=== PATIENT | female | born 1985 | race Hispanic/Latino ===

== ENCOUNTER 2018-07-20 13:32 | Emergency (ER) | payer SELFPAY ==
[2018-07-20 15:06] LABS: BASOPHILS % (AUTO) 0.4 % (0.0-5.0); EOSINOPHILS % (AUTO) 1.2 % (0.0-8.0); HEMATOCRIT 38.4 % (36-48); LYMPHOCYTES % (AUTO) 19.2 % (21.0-51.0); MEAN CORPUSCULAR HEMOGLOBIN 25.6 pg (27.0-33.0); MEAN CORPUSCULAR HGB CONC 32.9 g/dL (32.0-36.0); MEAN CORPUSCULAR VOLUME 77.8 fL (79-99); MONOCYTES % (AUTO) 6.4 % (3.0-13.0); NEUTROPHILS % (AUTO) 72.8 % (40.0-77.0); NUCLEATED RED BLOOD CELLS 0.1 % (0.0-0.19); PLATELET COUNT (AUTO) 313 K/uL (130-400); RED BLOOD CELL COUNT(AUTO) 4.94 MIL/uL (4.00-5.50); RED CELL DISTRIBUTION WIDTH 16.1 % (11.0-15.5); WHITE BLOOD COUNT (AUTO) 10.5 K/uL (4.8-10.8)
[2018-07-20] MEDS ORDERED: KETOROLAC TROMETHAMINE 30MG/ML ONE (15:16)
== END 2018-07-20 15:30 | disposition home or self-care (01) ==
LOC: EDH 13:32
DX: E28.2 Polycystic ovarian syndrome (principal); N93.9 Abnormal uterine and vaginal bleeding, unspecified; Z88.6 Allergy status to analgesic agent
CPT/HCPCS: 36415; 81025; 85025; 96372; 99284; J1885

== ENCOUNTER 2019-02-18 14:24 | Emergency (ER) | payer SELFPAY ==
[2019-02-18] MEDS ORDERED: KETOROLAC TROMETHAMINE 15MG/ML ONE (15:13)
[2019-02-18] MEDS ORDERED: ORPHENADRINE CITRATE 30 MG/ML ML ONE (15:13)
[2019-02-18 15:23] LABS: BASOPHILS % (AUTO) 0.3 % (0.0-5.0); HEMATOCRIT 39.3 % (36-48); LYMPHOCYTES % (AUTO) 21.7 % (21.0-51.0); MEAN CORPUSCULAR HEMOGLOBIN 24.4 pg (27.0-33.0); MEAN CORPUSCULAR HGB CONC 32.1 g/dL (32.0-36.0); MEAN CORPUSCULAR VOLUME 76.1 fL (79-99); MONOCYTES % (AUTO) 3.9 % (3.0-13.0); NEUTROPHILS % (AUTO) 73.1 % (40.0-77.0); PLATELET COUNT (AUTO) 329 K/uL (130-400); RED BLOOD CELL COUNT(AUTO) 5.17 MIL/uL (4.00-5.50); RED CELL DISTRIBUTION WIDTH 17.3 % (11.0-15.5); WHITE BLOOD COUNT (AUTO) 10.6 K/uL (4.8-10.8)
[2019-02-18 15:24] LABS: APPEARANCE,URINE Clear (CLEAR); BILIRUBIN,URINE Negative (NEGATIVE); COLOR,URINE Yellow (YELLOW); GLUCOSE, URINE (UA) Negative (NEGATIVE); KETONES,URINE Negative (NEGATIVE); LEUKOCYTE ESTERASE ,URINE Negative (NEGATIVE); NITRATE,URINE Negative (NEGATIVE); OCCULT BLOOD,URINE Negative (NEGATIVE); PROTEIN,URINE POS 1+ mg/dL (NEGATIVE); UROBILINOGEN,URINE 0.2 mg/dL (0.2-1.0)
[2019-02-18 15:32] LABS: CREATININE 0.7 mg/dL (0.5-1.5); POTASSIUM 3.8 mmol/L (3.5-5.1)
[2019-02-18 15:35] LABS: AMORPHOUS SEDIMENT,UR Few /LPF (None Seen); MUCUS,URINE Many LPF (None Seen); RBC,URINE None Seen /HPF (0-1)
[2019-02-18 15:36] LABS: ALBUMIN 3.3 g/dL (3.5-5.0); BILIRUBIN,TOTAL 0.3 mg/dL (0.2-1.0); TOTAL PROTEIN, SERUM 7.9 g/dL (6.0-8.3)
[2019-02-18 15:36] LABS: BACTERIA,URINE Few /HPF (None Seen); SQUAMOUS EPITHELIAL CELL,UR 0-2 /HPF (0-2)
== END 2019-02-18 16:25 | disposition home or self-care (01) ==
LOC: EDH 14:24
DX: M62.830 Muscle spasm of back (principal); I10 Essential (primary) hypertension; Z87.891 Personal history of nicotine dependence; Z88.5 Allergy status to narcotic agent
CPT/HCPCS: 36415; 80053; 81001; 83690; 85025; 96374; 96375; 99284; J1885; J2360

== ENCOUNTER 2019-04-27 23:57 | Emergency (ER) | payer OTHER ==
[2019-04-28] MEDS ORDERED: ACETAMINOPHEN EXTRA STRENGTH 500 MG TABLET ONE (00:25)
[2019-04-28] MEDS ORDERED: CYCLOBENZAPRINE HCL 10 MG TABLET ONE (00:26)
== END 2019-04-28 02:05 | disposition home or self-care (01) ==
LOC: EDH 23:57
DX: S16.1XXA Strain of muscle, fascia and tendon at neck level, initial encounter (principal); R20.2 Paresthesia of skin; I10 Essential (primary) hypertension; Z88.6 Allergy status to analgesic agent; Z79.899 Other long term (current) drug therapy; V59.19XA Passenger in pick-up truck or van injured in collision with other motor vehicles in nontraffic accident, initial encounter; Y93.89 Activity, other specified; Y92.89 Other specified places as the place of occurrence of the external cause; Y99.8 Other external cause status
CPT/HCPCS: 72040

== ENCOUNTER 2020-07-22 12:56 | Inpatient (IN) | payer BC, OTHER ==
[~2020-07-22] VITALS: Ht 157.5 cm; Wt 158.8 kg
[2020-07-22] MEDS ORDERED: DEXAMETHASONE SOD PHOSPHATE 10MG/ML 1ML VIAL ONE (13:26)
[2020-07-22] MEDS ORDERED: LEVOFLOXACIN 500 MG/D5W 100 ML 100 ML ONE (13:26)
[2020-07-22] MEDS ORDERED: SODIUM CHLORIDE 0.9% 1000ML 1,000 ML IV ONE (13:26)
[2020-07-22] MEDS ORDERED: ACETAMINOPHEN EXTRA STRENGTH 500 MG TABLET ONE (13:27)
[2020-07-22 13:46] LABS: BASOPHILS % (AUTO) 0.3 % (0.0-5.0); HEMATOCRIT 40.4 % (36-48); LYMPHOCYTES % (AUTO) 18.8 % (21.0-51.0); MEAN CORPUSCULAR HEMOGLOBIN 24.5 pg (27.0-33.0); MEAN CORPUSCULAR HGB CONC 31.4 g/dL (32.0-36.0); MONOCYTES % (AUTO) 4.8 % (3.0-13.0); NEUTROPHILS % (AUTO) 75.6 % (40.0-77.0); PLATELET COUNT (AUTO) 307 K/uL (130-400); RED BLOOD CELL COUNT(AUTO) 5.18 MIL/uL (4.00-5.50); RED CELL DISTRIBUTION WIDTH 15.9 % (11.0-15.5); WHITE BLOOD COUNT (AUTO) 7.3 K/uL (4.8-10.8)
[2020-07-22 13:58] LABS: INR 0.95 (0.85-1.15); PARTIAL THROMBOPLASTIN TIME 35.2 SEC (26.3-35.5); PROTHROMBIN TIME 10.3 SEC (9.6-11.6)
[2020-07-22 14:15] LABS: POTASSIUM 3.7 mmol/L (3.5-5.1)
[2020-07-22 14:19] LABS: ALBUMIN 3.5 g/dL (3.5-5.0); BILIRUBIN,TOTAL 0.3 mg/dL (0.2-1.0); TOTAL PROTEIN, SERUM 8.3 g/dL (6.0-8.3)
[2020-07-22] MEDS ORDERED: CEFTRIAXONE SODIUM 1 GM IVP SCH (15:15)
[2020-07-22] MEDS ORDERED: ERGOCALCIFEROL (VITAMIN D2) 50,000 UNIT CAPSULE PO ONE (15:15)
[2020-07-22] MEDS ORDERED: CEFTRIAXONE SODIUM 1 GM ONE (15:17)
[2020-07-22] MEDS ORDERED: ERGOCALCIFEROL (VITAMIN D2) 50,000 UNIT CAPSULE ONE (15:17)
[2020-07-22] MEDS ORDERED: ENOXAPARIN SODIUM 40 MG/0.4 ML SYRINGE SQ ONE (15:17)
[2020-07-22] MEDS ORDERED: DEXTROSE 50%-WATER 50 ML DISP.SYRIN IV PRN (16:00)
[2020-07-22] MEDS ORDERED: GLUCAGON 1MG KIT 1 MG ML IM PRN (16:00)
[2020-07-22] MEDS ORDERED: PHARMACY COMMUNICATION MISC SCH (16:15)
[2020-07-22 16:18] LABS: CRP QUANTITATIVE 36.5 mg/L (0.00-9.0)
[2020-07-22] MEDS: INSULIN HUMULIN R 100 UNIT/ML 3ML SQ SCH ×2 (16:30→21:00)
[2020-07-22 17:08] VITALS: BP 106/63
[2020-07-22] MEDS ORDERED: DEXAMETHASONE SOD PHOSPHATE 4 MG/ML 1ML VIAL IVP SCH (17:30)
[2020-07-22] MEDS: AZITHROMYCIN 500MG+NS 250ML 250 ML IV SCH (17:38)
[2020-07-22 18:02] LABS: HEMOGLOBIN A1C 6.4 % (4.0-6.0)
[2020-07-22] MEDS ORDERED: ENOXAPARIN SODIUM 40 MG/0.4 ML SYRINGE SQ SCH (20:00)
[2020-07-22 20:05] VITALS: BP 109/65
[2020-07-22] MEDS ORDERED: METHYLPREDNISOLONE SOD SUCC 40MG/ML 1ML IVP SCH (21:00)
[2020-07-22] MEDS ORDERED: BISO1TAB8 PO (21:03)
[2020-07-22] MEDS: FAMOTIDINE 20MG TAB 20 MG TAB PO SCH (21:33)
[2020-07-22] MEDS: ACETYLCYSTEINE 600 MG CAPSULE PO SCH (21:33)
[2020-07-22 23:25] VITALS: BP 99/67
[2020-07-23] MEDS: GUAIFENESIN-DM 200/20 MG 10 ML PO PRN (01:40)
[2020-07-23 04:09] LABS: BASOPHILS % (AUTO) 0.2 % (0.0-5.0); EOSINOPHILS % (AUTO) 2.7 % (0.0-8.0); HEMATOCRIT 39.8 % (36-48); LYMPHOCYTES % (AUTO) 16.3 % (21.0-51.0); MEAN CORPUSCULAR HEMOGLOBIN 23.9 pg (27.0-33.0); MEAN CORPUSCULAR HGB CONC 30.4 g/dL (32.0-36.0); MEAN CORPUSCULAR VOLUME 78.5 fL (79-99); MONOCYTES % (AUTO) 7.4 % (3.0-13.0); PLATELET COUNT (AUTO) 267 K/uL (130-400); RED BLOOD CELL COUNT(AUTO) 5.07 MIL/uL (4.00-5.50); RED CELL DISTRIBUTION WIDTH 15.9 % (11.0-15.5); WHITE BLOOD COUNT (AUTO) 5.6 K/uL (4.8-10.8)
[2020-07-23 04:34] LABS: ALANINE AMINOTRANSFERASE 27 U/L (12-78); ALBUMIN 3.1 g/dL (3.5-5.0); ASPARTATE AMINOTRANSFERASE 28 U/L (10-37); BILIRUBIN,TOTAL 0.4 mg/dL (0.2-1.0); CARBON DIOXIDE 26 mmol/L (21-32); CHLORIDE 96 mmol/L (101-111); CREATININE 0.8 mg/dL (0.5-1.5); GLOMERULAR FILTR. RATE CALC 86 mL/min (>60); GLUCOSE,RANDOM 133 mg/dL (70-105); LACTATE DEHYDROGENASE 257 U/L (81-234); POTASSIUM 3.7 mmol/L (3.5-5.1); SODIUM SERUM 130 mmol/L (136-145); TOTAL PROTEIN, SERUM 7.6 g/dL (6.0-8.3); UREA NITROGEN, BLOOD 12 mg/dL (7-18)
[2020-07-23 04:41] VITALS: BP 119/67
[2020-07-23] MEDS ORDERED: SODIUM CHLORIDE 0.9% 250 ML IV ONE (05:14)
[2020-07-23] MEDS: INSULIN HUMULIN R 100 UNIT/ML 3ML SQ SCH ×5 (06:56→21:24)
[2020-07-23 09:00] VITALS: BP 142/88
[2020-07-23] MEDS ORDERED: ZINC SULFATE 220 CAPSULE PO SCH (09:00)
[2020-07-23] MEDS ORDERED: CEFTRIAXONE SODIUM 1 GM IVP SCH (09:00)
[2020-07-23] MEDS ORDERED: ASCORBIC ACID 500 MG TAB PO SCH (09:00)
[2020-07-23] MEDS ORDERED: ENOXAPARIN SODIUM 40 MG/0.4 ML SYRINGE SQ SCH (09:00)
[2020-07-23] MEDS: ACETYLCYSTEINE 600 MG CAPSULE PO SCH (09:05)
[2020-07-23] MEDS: DEXAMETHASONE SOD PHOSPHATE 4 MG/ML 1ML VIAL IVP SCH (09:06)
[2020-07-23] MEDS: FAMOTIDINE 20MG TAB 20 MG TAB PO SCH ×2 (09:06→21:05)
[2020-07-23] MEDS: ACETAMINOPHEN 325 MG TAB PO PRN ×2 (10:39→18:04)
[2020-07-23 11:19] VITALS: BP 124/68
--- NOTE | 2020-07-23 14:54 | NUR ---
SPOKE WITH SPOUSE FOR DC PLANNING SPOUSE JERARDO STATES PATIENT IS INDEPENDENT, ACTIVE, EMPLOYED, DRIVES, NO DME, STEF STATES THINKS SHE DOES HAVE A HISTORY OF ASTHMA BUT NO CURRENT INHALERS. DCP HOME, SPOUSE ALSO COVID + AT THIS TIME Addendum: 07/23/20 at 1456 by BAKARI PEARCE RN CM Amended: Links added.
[2020-07-23] MEDS: AZITHROMYCIN 500MG+NS 250ML 250 ML IV SCH (16:24)
[2020-07-23 16:25] VITALS: BP 118/70
--- NOTE | 2020-07-23 18:48 | NUR ---
Nursing assessment. Pt in prone position most of the day. O2 Sat 94-96% on 2LNC all day. Temp controlled by Tylenol Breathing techniques and prone position education rendered Pt verbalizes understanding.
[2020-07-23 20:31] VITALS: BP 129/69
[2020-07-23] MEDS: ENOXAPARIN SODIUM 60 MG/0.6 ML SQ SCH (21:05)
[2020-07-23 23:57] VITALS: BP 121/67
[2020-07-24 03:52] VITALS: BP 144/73
[2020-07-24 08:00] VITALS: BP 116/67
[2020-07-24] MEDS: FAMOTIDINE 20MG TAB 20 MG TAB PO SCH ×2 (09:06→21:07)
[2020-07-24] MEDS: DEXAMETHASONE SOD PHOSPHATE 4 MG/ML 1ML VIAL IVP SCH (09:06)
[2020-07-24] MEDS: ENOXAPARIN SODIUM 60 MG/0.6 ML SQ SCH ×2 (09:08→21:07)
[2020-07-24] MEDS: INSULIN HUMULIN R 100 UNIT/ML 3ML SQ SCH ×3 (11:30→21:00)
[2020-07-24 12:00] VITALS: BP 140/61
[2020-07-24] MEDS ORDERED: PHARMACY COMMUNICATION MISC SCH ×2 (12:15→16:30)
[2020-07-24 16:00] VITALS: BP 117/75
[2020-07-24] MEDS: AZITHROMYCIN 500MG+NS 250ML 250 ML IV SCH (16:35)
[2020-07-24] MEDS ORDERED: REMDESIVIR (EUA) 520 200 MG in SODIUM CHLORIDE 0.9% 250 ML IV ONE (18:00)
[2020-07-24] MEDS ORDERED: COMPOUND IV REFRIGERATED 1 EACH IVSOLN MISC PRN (18:00)
[2020-07-24] MEDS ORDERED: ZINC SULFATE 220 CAPSULE PO SCH (18:30)
[2020-07-24 20:27] VITALS: BP 123/74
[2020-07-24] MEDS: ACETYLCYSTEINE 600 MG CAPSULE PO SCH (21:07)
[2020-07-24] MEDS: PHARMACY COMMUNICATION MISC SCH (21:07)
[2020-07-24] MEDS: ACETAMINOPHEN 325 MG TAB PO PRN (23:14)
[2020-07-24 23:44] VITALS: BP 140/80
[2020-07-24] MEDS: GUAIFENESIN-DM 200/20 MG 10 ML PO PRN (23:52)
[2020-07-25] MEDS ORDERED: KETOROLAC TROMETHAMINE 15MG/ML IV PRN (04:00)
[2020-07-25 04:10] VITALS: BP 133/73
[2020-07-25 04:15] LABS: BASOPHILS % (AUTO) 0.1 % (0.0-5.0); HEMATOCRIT 38.8 % (36-48); LYMPHOCYTES % (AUTO) 14.3 % (21.0-51.0); MEAN CORPUSCULAR HEMOGLOBIN 23.8 pg (27.0-33.0); MEAN CORPUSCULAR HGB CONC 30.7 g/dL (32.0-36.0); MEAN CORPUSCULAR VOLUME 77.6 fL (79-99); NEUTROPHILS % (AUTO) 81.1 % (40.0-77.0); PLATELET COUNT (AUTO) 268 K/uL (130-400); RED CELL DISTRIBUTION WIDTH 15.8 % (11.0-15.5); WHITE BLOOD COUNT (AUTO) 8.3 K/uL (4.8-10.8)
[2020-07-25 04:29] LABS: CRP QUANTITATIVE 137.5 mg/L (0.00-9.0)
[2020-07-25] MEDS: GUAIFENESIN-DM 200/20 MG 10 ML PO PRN ×3 (04:47→21:10)
[2020-07-25] MEDS: ACETAMINOPHEN 325 MG TAB PO PRN (04:47)
[2020-07-25] MEDS: INSULIN HUMULIN R 100 UNIT/ML 3ML SQ SCH ×5 (05:48→20:51)
[2020-07-25 06:52] LABS: ALBUMIN 3.1 g/dL (3.5-5.0); BILIRUBIN,TOTAL 0.3 mg/dL (0.2-1.0); CREATININE 0.9 mg/dL (0.5-1.5); POTASSIUM 3.8 mmol/L (3.5-5.1); TOTAL PROTEIN, SERUM 7.4 g/dL (6.0-8.3)
[2020-07-25 08:00] VITALS: BP 113/69
[2020-07-25] MEDS: FAMOTIDINE 20MG TAB 20 MG TAB PO SCH ×2 (09:44→20:46)
[2020-07-25] MEDS: ACETYLCYSTEINE 600 MG CAPSULE PO SCH ×2 (09:44→20:46)
[2020-07-25] MEDS: ASCORBIC ACID 500 MG TAB PO SCH (09:44)
[2020-07-25] MEDS: DEXAMETHASONE SOD PHOSPHATE 4 MG/ML 1ML VIAL IVP SCH (09:57)
[2020-07-25] MEDS: ENOXAPARIN SODIUM 60 MG/0.6 ML SQ SCH ×2 (09:58→20:47)
[2020-07-25 12:00] VITALS: BP 151/82
[2020-07-25 16:00] VITALS: BP 123/85
[2020-07-25] MEDS: REMDESIVIR (EUA) 520 100 MG in SODIUM CHLORIDE 0.9% 250 ML IV SCH (17:06)
[2020-07-25 21:10] VITALS: BP 126/74
[2020-07-26] VITALS (7 sets, daily range): BP systolic 111–130; BP diastolic 68–84
[2020-07-26 03:58] LABS: HEMATOCRIT 38.2 % (36-48); MEAN CORPUSCULAR HEMOGLOBIN 24.2 pg (27.0-33.0); MEAN CORPUSCULAR HGB CONC 31.7 g/dL (32.0-36.0); MEAN CORPUSCULAR VOLUME 76.4 fL (79-99); RED CELL DISTRIBUTION WIDTH 15.6 % (11.0-15.5); WHITE BLOOD COUNT (AUTO) 5.1 K/uL (4.8-10.8)
[2020-07-26 04:18] LABS: ALANINE AMINOTRANSFERASE 64 U/L (12-78); ASPARTATE AMINOTRANSFERASE 64 U/L (10-37); BILIRUBIN,TOTAL 0.4 mg/dL (0.2-1.0); CARBON DIOXIDE 27 mmol/L (21-32); CHLORIDE 97 mmol/L (101-111); CREATININE 0.8 mg/dL (0.5-1.5); GLOMERULAR FILTR. RATE CALC 86 mL/min (>60); GLUCOSE,RANDOM 121 mg/dL (70-105); LACTATE DEHYDROGENASE 418 U/L (81-234); POTASSIUM 3.4 mmol/L (3.5-5.1); SODIUM SERUM 131 mmol/L (136-145); UREA NITROGEN, BLOOD 11 mg/dL (7-18)
[2020-07-26] MEDS: PHARMACY COMMUNICATION MISC SCH (05:12)
[2020-07-26] MEDS ORDERED: POTASSIUM CHLORIDE 20 MEQ ERTAB PO PRN (05:15)
[2020-07-26] MEDS ORDERED: LIDOCAINE HCL-MPF 1% 2ML VIAL IV PRN (05:15)
[2020-07-26] MEDS ORDERED: POTASSIUM CHLORIDE 20MEQ/100ML 100 ML IV PRN (05:15)
[2020-07-26] MEDS: POTASSIUM CHLORIDE 10% ELIXIR 20 MEQ/15 ML UDCUP PO PRN ×2 (05:50→08:28)
[2020-07-26] MEDS: DEXAMETHASONE SOD PHOSPHATE 4 MG/ML 1ML VIAL IVP SCH (08:27)
[2020-07-26] MEDS: ENOXAPARIN SODIUM 60 MG/0.6 ML SQ SCH ×2 (08:27→20:08)
[2020-07-26] MEDS: ASCORBIC ACID 500 MG TAB PO SCH (08:27)
[2020-07-26] MEDS: FAMOTIDINE 20MG TAB 20 MG TAB PO SCH ×2 (08:28→20:08)
[2020-07-26] MEDS: ACETYLCYSTEINE 600 MG CAPSULE PO SCH (08:28)
[2020-07-26] MEDS: INSULIN HUMULIN R 100 UNIT/ML 3ML SQ SCH ×3 (11:30→20:30)
[2020-07-26] MEDS: REMDESIVIR (EUA) 520 100 MG in SODIUM CHLORIDE 0.9% 250 ML IV SCH (19:11)
[2020-07-26] MEDS: GUAIFENESIN-DM 200/20 MG 10 ML PO PRN (20:11)
[2020-07-27] MEDS: GUAIFENESIN-DM 200/20 MG 10 ML PO PRN ×2 (03:24→19:51)
[2020-07-27 04:07] LABS: BASOPHILS % (AUTO) 0.2 % (0.0-5.0); LYMPHOCYTES % (AUTO) 24.4 % (21.0-51.0); MEAN CORPUSCULAR HGB CONC 31.6 g/dL (32.0-36.0); MEAN CORPUSCULAR VOLUME 76.2 fL (79-99); MONOCYTES % (AUTO) 9.4 % (3.0-13.0); NEUTROPHILS % (AUTO) 64.7 % (40.0-77.0); PLATELET COUNT (AUTO) 338 K/uL (130-400); RED BLOOD CELL COUNT(AUTO) 4.99 MIL/uL (4.00-5.50); RED CELL DISTRIBUTION WIDTH 15.6 % (11.0-15.5); WHITE BLOOD COUNT (AUTO) 5.5 K/uL (4.8-10.8)
[2020-07-27 04:26] LABS: ALBUMIN 2.9 g/dL (3.5-5.0); BILIRUBIN,TOTAL 0.3 mg/dL (0.2-1.0); CREATININE 0.6 mg/dL (0.5-1.5); POTASSIUM 3.5 mmol/L (3.5-5.1); TOTAL PROTEIN, SERUM 7.5 g/dL (6.0-8.3)
[2020-07-27 05:38] VITALS: BP 100/71
[2020-07-27] MEDS: INSULIN HUMULIN R 100 UNIT/ML 3ML SQ SCH ×4 (05:50→20:17)
[2020-07-27] MEDS: PHARMACY COMMUNICATION MISC SCH (05:50)
[2020-07-27 08:00] VITALS: BP 114/62
[2020-07-27] MEDS: ZINC SULFATE 220 CAPSULE PO SCH (08:45)
[2020-07-27] MEDS: FAMOTIDINE 20MG TAB 20 MG TAB PO SCH ×2 (08:45→19:51)
[2020-07-27] MEDS: ENOXAPARIN SODIUM 60 MG/0.6 ML SQ SCH ×2 (08:45→19:51)
[2020-07-27] MEDS: ASCORBIC ACID 500 MG TAB PO SCH (08:45)
[2020-07-27] MEDS: DEXAMETHASONE SOD PHOSPHATE 4 MG/ML 1ML VIAL IVP SCH (08:45)
[2020-07-27 12:00] VITALS: BP 110/71
[2020-07-27 16:00] VITALS: BP 111/58
[2020-07-27] MEDS: REMDESIVIR (EUA) 520 100 MG in SODIUM CHLORIDE 0.9% 250 ML IV SCH (18:03)
[2020-07-27 20:00] VITALS: BP 102/61
[2020-07-27 23:49] VITALS: BP 115/62
[2020-07-28 03:58] VITALS: BP 122/71
[2020-07-28] MEDS: PHARMACY COMMUNICATION MISC SCH (04:54)
[2020-07-28 05:29] LABS: BASOPHILS % (AUTO) 0.3 % (0.0-5.0); EOSINOPHILS % (AUTO) 0.1 % (0.0-8.0); HEMATOCRIT 36.1 % (36-48); LYMPHOCYTES % (AUTO) 26.2 % (21.0-51.0); MEAN CORPUSCULAR HEMOGLOBIN 23.9 pg (27.0-33.0); NEUTROPHILS % (AUTO) 63.2 % (40.0-77.0); PLATELET COUNT (AUTO) 375 K/uL (130-400); RED BLOOD CELL COUNT(AUTO) 4.69 MIL/uL (4.00-5.50); RED CELL DISTRIBUTION WIDTH 15.9 % (11.0-15.5); WHITE BLOOD COUNT (AUTO) 7.4 K/uL (4.8-10.8)
[2020-07-28 05:59] LABS: ALBUMIN 2.8 g/dL (3.5-5.0); BILIRUBIN,TOTAL 0.3 mg/dL (0.2-1.0); CREATININE 0.7 mg/dL (0.5-1.5); POTASSIUM 3.6 mmol/L (3.5-5.1)
[2020-07-28] MEDS: INSULIN HUMULIN R 100 UNIT/ML 3ML SQ SCH ×4 (06:37→21:00)
[2020-07-28 08:00] VITALS: BP 112/67
[2020-07-28] MEDS: DEXAMETHASONE SOD PHOSPHATE 4 MG/ML 1ML VIAL IVP SCH (09:41)
[2020-07-28] MEDS: FAMOTIDINE 20MG TAB 20 MG TAB PO SCH ×2 (09:42→20:13)
[2020-07-28] MEDS: ZINC SULFATE 220 CAPSULE PO SCH (09:42)
[2020-07-28] MEDS: ASCORBIC ACID 500 MG TAB PO SCH (09:42)
[2020-07-28] MEDS: ENOXAPARIN SODIUM 60 MG/0.6 ML SQ SCH ×2 (09:42→20:13)
[2020-07-28 12:25] VITALS: BP 118/58
[2020-07-28 16:00] VITALS: BP 122/64
[2020-07-28] MEDS: REMDESIVIR (EUA) 520 100 MG in SODIUM CHLORIDE 0.9% 250 ML IV SCH (18:23)
[2020-07-28 20:00] VITALS: BP 103/68
[2020-07-29] VITALS: BP 129/75
[2020-07-29 04:00] VITALS: BP 114/78
[2020-07-29 04:37] LABS: BASOPHILS % (AUTO) 0.2 % (0.0-5.0); EOSINOPHILS % (AUTO) 0.4 % (0.0-8.0); HEMATOCRIT 37.4 % (36-48); LYMPHOCYTES % (AUTO) 24.2 % (21.0-51.0); MEAN CORPUSCULAR HEMOGLOBIN 24.2 pg (27.0-33.0); MEAN CORPUSCULAR HGB CONC 31.3 g/dL (32.0-36.0); MEAN CORPUSCULAR VOLUME 77.3 fL (79-99); MONOCYTES % (AUTO) 6.3 % (3.0-13.0); NEUTROPHILS % (AUTO) 64.7 % (40.0-77.0); PLATELET COUNT (AUTO) 409 K/uL (130-400); RED BLOOD CELL COUNT(AUTO) 4.84 MIL/uL (4.00-5.50); RED CELL DISTRIBUTION WIDTH 15.6 % (11.0-15.5); WHITE BLOOD COUNT (AUTO) 10.1 K/uL (4.8-10.8)
[2020-07-29 04:49] LABS: CRP QUANTITATIVE 29.9 mg/L (0.00-9.0)
[2020-07-29] MEDS: PHARMACY COMMUNICATION MISC SCH (06:00)
[2020-07-29] MEDS: INSULIN HUMULIN R 100 UNIT/ML 3ML SQ SCH ×4 (07:11→20:15)
[2020-07-29 07:34] VITALS: BP 112/67
[2020-07-29 08:00] LABS: CREATININE 0.7 mg/dL (0.5-1.5); POTASSIUM 3.8 mmol/L (3.5-5.1)
[2020-07-29] MEDS: DEXAMETHASONE SOD PHOSPHATE 4 MG/ML 1ML VIAL IVP SCH (08:16)
[2020-07-29] MEDS: ASCORBIC ACID 500 MG TAB PO SCH (08:16)
[2020-07-29] MEDS: FAMOTIDINE 20MG TAB 20 MG TAB PO SCH ×2 (08:16→20:15)
[2020-07-29] MEDS: ZINC SULFATE 220 CAPSULE PO SCH (08:16)
[2020-07-29] MEDS: ENOXAPARIN SODIUM 60 MG/0.6 ML SQ SCH ×2 (08:17→20:15)
[2020-07-29 11:29] VITALS: BP 124/77
[2020-07-29 16:34] VITALS: BP 107/62
--- NOTE | 2020-07-29 17:10 | NUR ---
NOTIFIED DR. Blas ROSENTHAL, PT. HAS COMPLETED REMDESIVIR INFUSION TREATMENT AND DOES NOT QUALIFY FOR HOME O2 PER R.T.; VERBALIZED UNDERSTANDING, NO NEW ORDERS RECEIVED AT THIS TIME.
[2020-07-29 20:09] VITALS: BP 114/78
[2020-07-30 00:07] VITALS: BP 119/83
[2020-07-30 04:05] VITALS: BP 110/71
[2020-07-30 05:47] LABS: BASOPHILS % (AUTO) 0.5 % (0.0-5.0); EOSINOPHILS % (AUTO) 0.5 % (0.0-8.0); HEMATOCRIT 37.8 % (36-48); MEAN CORPUSCULAR HEMOGLOBIN 24.1 pg (27.0-33.0); MEAN CORPUSCULAR VOLUME 77.8 fL (79-99); MONOCYTES % (AUTO) 6.3 % (3.0-13.0); NEUTROPHILS % (AUTO) 65.1 % (40.0-77.0); PLATELET COUNT (AUTO) 452 K/uL (130-400); RED BLOOD CELL COUNT(AUTO) 4.86 MIL/uL (4.00-5.50); RED CELL DISTRIBUTION WIDTH 15.8 % (11.0-15.5); WHITE BLOOD COUNT (AUTO) 14.6 K/uL (4.8-10.8)
[2020-07-30 06:00] LABS: CRP QUANTITATIVE 20.8 mg/L (0.00-9.0)
[2020-07-30] MEDS: INSULIN HUMULIN R 100 UNIT/ML 3ML SQ SCH (06:12)
[2020-07-30 08:00] VITALS: BP 115/72
[2020-07-30] MEDS: ZINC SULFATE 220 CAPSULE PO SCH (08:10)
[2020-07-30] MEDS: ENOXAPARIN SODIUM 60 MG/0.6 ML SQ SCH (08:10)
[2020-07-30] MEDS: DEXAMETHASONE SOD PHOSPHATE 4 MG/ML 1ML VIAL IVP SCH (08:10)
[2020-07-30] MEDS: FAMOTIDINE 20MG TAB 20 MG TAB PO SCH (08:10)
[2020-07-30] MEDS: ASCORBIC ACID 500 MG TAB PO SCH (08:10)
[2020-07-30] MEDS ORDERED: DEXA6TAB PO (08:30)
[2020-07-30] MEDS ORDERED: ZINC220C6 PO (08:30)
[2020-07-30] MEDS ORDERED: ASCO500T20 PO (08:30)
[2020-07-30] MEDS ORDERED: APIX2.5T PO (08:30)
[2020-07-31] MEDS ORDERED: DEXAMETHASONE 4 MG TAB PO SCH (09:00)
== END 2020-07-30 11:05 | disposition home or self-care (01) | DRG 177 ==
LOC: EDH 12:56 → EDHIP 15:02 → 2AH 16:50
PROVIDERS: ADMIT Internal Medicine; ATTEND Internal Medicine
PROC: XW13325 Transfusion of Convalescent Plasma (Nonautologous) into Peripheral Vein, Percutaneous Approach, New Technology Group 5 (ICD-10-PCS; principal; 2020-07-23)
PROC: XW033E5 Introduction of Remdesivir Anti-infective into Peripheral Vein, Percutaneous Approach, New Technology Group 5 (ICD-10-PCS; 2020-07-24)
DX: U07.1 COVID-19 (principal); J12.89 Other viral pneumonia; J96.01 Acute respiratory failure with hypoxia; Z68.44 Body mass index [BMI] 60.0-69.9, adult; E87.1 Hypo-osmolality and hyponatremia; I10 Essential (primary) hypertension; E11.9 Type 2 diabetes mellitus without complications; E66.01 Morbid (severe) obesity due to excess calories; E87.6 Hypokalemia; E78.5 Hyperlipidemia, unspecified; E83.51 Hypocalcemia; Z78.9 Other specified health status; Z88.5 Allergy status to narcotic agent; Z88.8 Allergy status to other drugs, medicaments and biological substances; Z91.19 Patient's noncompliance with other medical treatment and regimen; Z91.14 Patient's other noncompliance with medication regimen
CPT/HCPCS: 36415; 71045; 80048; 80053; 82550; 82728; 82948; 83036; 83615; 84145; 84484; 85025; 85027; 85378; 85610; 85730; 86140; 86850; 86900; 86901; 86927; 87040; 87426; 93005; 94760; 99291; A4606; G0378; J0456; J0696; J1100; J1650; J1885; J1956; J7030; J7050; U0003

== ENCOUNTER 2020-11-27 21:11 | Emergency (ER) | payer BC ==
[~2020-11-27 21:11] MED LIST: APIX2.5T PO; ASCO500T20 PO; DEXA6TAB PO; ZINC220C6 PO
[2020-11-27 23:04] LABS: APPEARANCE,URINE Clear (CLEAR); BILIRUBIN,URINE Negative (NEGATIVE); COLOR,URINE Yellow (YELLOW); GLUCOSE, URINE (UA) Negative (NEGATIVE); KETONES,URINE Negative (NEGATIVE); LEUKOCYTE ESTERASE ,URINE Negative (NEGATIVE); NITRATE,URINE Negative (NEGATIVE); OCCULT BLOOD,URINE Negative (NEGATIVE); PROTEIN,URINE Negative (NEGATIVE); UROBILINOGEN,URINE 0.2 mg/dL (0.2-1.0)
[2020-11-27 23:37] LABS: BASOPHILS % (AUTO) 0.3 % (0.0-5.0); EOSINOPHILS % (AUTO) 1.7 % (0.0-8.0); HEMATOCRIT 40.3 % (36-48); LYMPHOCYTES % (AUTO) 22.5 % (21.0-51.0); MEAN CORPUSCULAR HEMOGLOBIN 24.2 pg (27.0-33.0); MEAN CORPUSCULAR HGB CONC 30.8 g/dL (32.0-36.0); MEAN CORPUSCULAR VOLUME 78.7 fL (79-99); MONOCYTES % (AUTO) 5.6 % (3.0-13.0); NEUTROPHILS % (AUTO) 69.6 % (40.0-77.0); PLATELET COUNT (AUTO) 319 K/uL (130-400); RED BLOOD CELL COUNT(AUTO) 5.12 MIL/uL (4.00-5.50); RED CELL DISTRIBUTION WIDTH 14.8 % (11.0-15.5); WHITE BLOOD COUNT (AUTO) 12.4 K/uL (4.8-10.8)
[2020-11-27 23:45] LABS: CREATININE 0.8 mg/dL (0.5-1.5); POTASSIUM 3.9 mmol/L (3.5-5.1)
[2020-11-27 23:51] LABS: ALBUMIN 3.3 g/dL (3.5-5.0); BILIRUBIN,TOTAL 0.2 mg/dL (0.2-1.0); TOTAL PROTEIN, SERUM 7.7 g/dL (6.0-8.3)
[2020-11-27 23:58] LABS: RAPID GROUP A STREP NEGATIVE (NEGATIVE)
== END 2020-11-28 00:33 | disposition home or self-care (01) ==
LOC: EDH 21:11
DX: J01.40 Acute pansinusitis, unspecified (principal); Z20.822 Contact with and (suspected) exposure to COVID-19
CPT/HCPCS: 36415; 71045; 80053; 81003; 82550; 84484; 85025; 85378; 87426; 87804; 87880; 93005; 99291